=== PATIENT | female | born 1990 | race Caucasian/White ===

== ENCOUNTER → 2017-10-17 | Outpatient (CLI) | payer BC | LOC: SUN.DIA 08:04 | DX: O24.419 Gestational diabetes mellitus in pregnancy, unspecified control (principal); Z3A.30 30 weeks gestation of pregnancy | CPT/HCPCS: G0108 ==

== ENCOUNTER → 2017-10-26 | Outpatient (CLI) | payer BC | LOC: SUN.DIA 08:43 | DX: O24.419 Gestational diabetes mellitus in pregnancy, unspecified control (principal); Z3A.32 32 weeks gestation of pregnancy | CPT/HCPCS: G0108 ==

== ENCOUNTER → 2017-11-14 | Outpatient (CLI) | payer BC | LOC: SUN.DIA 08:39 | DX: O24.419 Gestational diabetes mellitus in pregnancy, unspecified control (principal); Z3A.34 34 weeks gestation of pregnancy | CPT/HCPCS: G0108 ==

== ENCOUNTER 2017-11-22 14:35 | Inpatient (IN) | payer BC ==
[2017-11-22] VITALS (30 sets, daily range): BP systolic 105–180; BP diastolic 53–115; PULSE 77–101; TEMP 97.9–98.2
[~2017-11-22] VITALS: Ht 172.7 cm; Wt 79.5 kg
[2017-11-22] MEDS ORDERED: TUMS500 MG (14:56)
[2017-11-22] MEDS ORDERED: CONCEPT DHA1 CAP PO (14:56)
[2017-11-22 15:48] LABS: HEMATOCRIT 36.5 % (37.0-47.0); HEMOGLOBIN 12.8 g/dl (12.5-16.0); MEAN CELL VOLUME 85 fl (80.0-100.0); MEAN CORPUSCULAR HEMOGLOBIN 30 pg (27.0-31.0); MEAN CORPUSCULAR HGB CONC 35 g/dl (33.0-37.0); MEAN PLATELET VOLUME 13.2 fl (7.4-10.4); PLATELET COUNT 116 K/mm3 (130-400); RED BLOOD COUNT 4.32 M/mm3 (4.10-5.30); REDCELL DISTRIBUTION WIDTH-CV 12.1 % (11.5-14.5)
[2017-11-22 15:56] LABS: ALBUMIN 3.3 gm/dL (3.5-5.0); BILIRUBIN,TOTAL 0.4 mg/dL (0.0-1.0); CALCIUM 10.1 mg/dL (8.4-10.2); CREATININE, serum 0.59 mg/dL (0.52-1.25); POTASSIUM 3.6 mmol/L (3.4-5.0); TOTAL PROTEIN 6.7 gm/dL (6.4-8.2)
[2017-11-23] VITALS (82 sets, daily range): BP systolic 100–166; BP diastolic 51–86; PULSE 69–146; TEMP 97.6–98.6
[2017-11-23 01:22] LABS: MEAN CELL VOLUME 85 fl (80.0-100.0); MEAN CORPUSCULAR HEMOGLOBIN 30 pg (27.0-31.0); MEAN CORPUSCULAR HGB CONC 35 g/dl (33.0-37.0); MEAN PLATELET VOLUME 13.1 fl (7.4-10.4); PLATELET COUNT 106 K/mm3 (130-400); RED BLOOD COUNT 4.06 M/mm3 (4.10-5.30)
[2017-11-23 01:25] LABS: HEMATOCRIT 34.5 % (37.0-47.0)
[2017-11-23 01:58] LABS: LYMPHOCYTE 5 % (20.0-51.0); NEUTROPHILS 95 % (42.0-75.2); PLATELET ESTIMATE DECREASED (NORMAL)
[2017-11-23 02:00] LABS: ALBUMIN 3.3 gm/dL (3.5-5.0); BILIRUBIN,TOTAL 0.4 mg/dL (0.0-1.0); CALCIUM 8.5 mg/dL (8.4-10.2); CREATININE, serum 0.55 mg/dL (0.52-1.25); POTASSIUM 3.9 mmol/L (3.4-5.0); TOTAL PROTEIN 6.5 gm/dL (6.4-8.2)
[2017-11-23] MEDS ORDERED: MOTRIN 800800 MG/TAB PO (08:40)
[2017-11-23] MEDS ORDERED: PERCOCET 325 MG1 TA2 PO (08:40)
[2017-11-24 00:15] VITALS: BP 128/71; PULSE 87; TEMP 98.4
[2017-11-24 04:40] VITALS: BP 123/75; PULSE 73; TEMP 97.7
[2017-11-24 07:30] VITALS: BP 133/88; PULSE 79; TEMP 98.3
[2017-11-24 09:03] LABS: BASO % 0.2 % (0.0-2.0); GRAN # 19.9 (1.4-6.5); GRAN % 88.4 % (42.2-75.2); HEMOGLOBIN 11.3 g/dl (12.5-16.0); LYMPH # 1.3 (1.2-3.4); LYMPH % 5.6 % (20.0-51.0); MEAN CELL VOLUME 89 fl (80.0-100.0); MEAN CORPUSCULAR HEMOGLOBIN 30 pg (27.0-31.0); MEAN CORPUSCULAR HGB CONC 34 g/dl (33.0-37.0); MEAN PLATELET VOLUME 13.4 fl (7.4-10.4); MONO % 4.6 % (1.7-9.3); PLATELET COUNT 133 K/mm3 (130-400); RED BLOOD COUNT 3.78 M/mm3 (4.10-5.30); REDCELL DISTRIBUTION WIDTH-CV 12.4 % (11.5-14.5)
[2017-11-24 09:11] LABS: HEMATOCRIT 33.6 % (37.0-47.0)
[2017-11-24 09:18] LABS: ALBUMIN 3.2 gm/dL (3.5-5.0); BILIRUBIN,TOTAL 0.4 mg/dL (0.0-1.0); CREATININE, serum 0.68 mg/dL (0.52-1.25); POTASSIUM 4.8 mmol/L (3.4-5.0); TOTAL PROTEIN 6.4 gm/dL (6.4-8.2)
[2017-11-24 20:00] VITALS: BP 128/80; PULSE 69; TEMP 97.7
[2017-11-25 08:00] VITALS: BP 128/81; PULSE 77; TEMP 98.2
[2017-11-25 17:00] VITALS: BP 130/80; PULSE 74; TEMP 97.9
== END 2017-11-25 17:30 | disposition home or self-care (01) | DRG 807 ==
LOC: LDRO 14:35 → LDR 16:17 → OB 11-23 22:15
PROVIDERS: Obstetrics & Gynecology
PROC: 3E033VJ Introduction of Other Hormone into Peripheral Vein, Percutaneous Approach (ICD-10-PCS; 2017-11-22)
PROC: 10E0XZZ Delivery of Products of Conception, External Approach (ICD-10-PCS; principal; 2017-11-23)
PROC: 0W8NXZZ Division of Female Perineum, External Approach (ICD-10-PCS; 2017-11-23)
DX: O14.14 Severe pre-eclampsia complicating childbirth (principal); Z37.0 Single live birth; Z3A.34 34 weeks gestation of pregnancy; O24.420 Gestational diabetes mellitus in childbirth, diet controlled; J45.909 Unspecified asthma, uncomplicated; O99.52 Diseases of the respiratory system complicating childbirth; O99.344 Other mental disorders complicating childbirth; F41.9 Anxiety disorder, unspecified; O76 Abnormality in fetal heart rate and rhythm complicating labor and delivery
CPT/HCPCS: J0702; J2540; J2590; J3475; J7030

== ENCOUNTER 2020-07-06 13:43 | Inpatient (IN) | payer BC ==
[2020-07-06] VITALS (27 sets, daily range): BP systolic 101–143; BP diastolic 54–88; PULSE 73–116; TEMP 97.5–98.8
[~2020-07-06] VITALS: Ht 175.3 cm; Wt 72.3 kg
--- NOTE | 2020-07-06 13:10 | NUR ---
Patient ambulatory to LR5, changed into gown, FHR/TOCO monitors applied. Patient is a direct admit from office per Dr. Keen due to Preeclampsia. Patient is having a small-moderate amount of red vaginal bleeding and Dr. Keen is aware of this. Patient states she is feeling some cramping, denies any leaking of fluid/decreased movement. Plan of care discussed. 1320: IV started in left hand, blood obtained and to lab, LR infusing. 1325: Dr. Keen at bedside assessing patient patient/bleeding/FHR strip. Plan of care discussed. 1326: SVE per Dr. Keen 4-5/70/-2 and AROM with clear fluid noted.
--- NOTE | 2020-07-06 13:35 | NUR ---
Dr. Keen orders to start pitocin. 1335: Pitocin induction discussed and patient agrees. Pitocin started at 2mu/hr per protocol. Dr. Keen orders to increase pitocin 2mu every 20 minutes. 1420: Patient requests epidural and Kelsea Neely [employer] notified. 1435: Patient sitting up for epidural and Kelsea Neely [employer] at bedside. 1442: Single shot given and patient tolerates well. 1450: Patient repositioned and safety precautions/plan of care discussed. 1530: Vang catheter placed and patient tolerates well. SVE- 5-6/70/-2 and patient left lateral and right leg resting in stirrup.
[~2020-07-06 13:43] MED LIST: BIRTH CONTROL; CIPRO 500MG TA500 MG PO; CONCEPT DHA1 CAP PO; CYSTEX PO; MOTRIN 800800 MG/TAB PO; PERCOCET 325 MG1 TA2 PO; PYRIDIUM200 M1 PO; TUMS500 MG
[2020-07-06 14:04] LABS: BASO % 0.4 % (0.0-2.0); EOS # 0.1 (0.0-0.7); EOS % 0.5 % (0-4.0); GRAN # 7.2 (1.4-6.5); GRAN % 67.9 % (42.2-75.2); HEMATOCRIT 38.4 % (37.0-47.0); HEMOGLOBIN 13.4 g/dl (12.5-16.0); LYMPH # 2.5 (1.2-3.4); LYMPH % 24.1 % (20.0-51.0); MEAN CELL VOLUME 85 fl (80.0-100.0); MEAN CORPUSCULAR HEMOGLOBIN 30 pg (27.0-31.0); MEAN CORPUSCULAR HGB CONC 35 g/dl (33.0-37.0); MEAN PLATELET VOLUME 13.4 fl (7.4-10.4); MONO # 0.7 (0.1-0.6); MONO % 6.6 % (1.7-9.3); PLATELET COUNT 131 K/mm3 (130-400); REDCELL DISTRIBUTION WIDTH-CV 12.8 % (11.5-14.5)
[2020-07-06] MEDS ORDERED: TRANDATE 100MG100 MG PO (14:04)
[2020-07-06] MEDS ORDERED: WELLBUTRIN SR150 M1 PO (14:06)
[2020-07-06] MEDS ORDERED: NATURAL IRON65 MG (14:07)
[2020-07-06] MEDS ORDERED: PRENATAL TABLET PO (14:07)
[2020-07-06 14:13] LABS: ALBUMIN 3.5 gm/dL (3.5-5.0); BILIRUBIN,TOTAL 0.2 mg/dL (0.0-1.0); CALCIUM 9.1 mg/dL (8.4-10.2); CREATININE, serum 0.8 (0.52-1.25); TOTAL PROTEIN 6.8 gm/dL (6.4-8.2)
[2020-07-06] MEDS ORDERED: FIORICET 325 MG1 TA1 PO (15:20)
--- NOTE | 2020-07-06 17:10 | NUR ---
SVE-10/100/0 and patient practice pushes. 1723: Dr. Keen called for delivery. Vang catheter removed. 1733: Dr. Keen at bedside and patient prepped for vaginal delivery. 1736: Patient pushes with contractions. 1737: Spontaneous vaginal delivery of viable female-head followed by body. bulb syringed and to patients abdomen, E.Gina assumes care of infant. Cord clamped by physician and cut by FOB. Cord blood and cord gases obtained. 1739: Spontaneous delivery of placenta and pitocin bolus started at 333 mu/hr per protocol. Fundal massage done/firm/bleeding WNL. Dr. Keen repairs laceration Patient reposition and ice pack to perineum. Plan of care discussed.
--- NOTE | 2020-07-06 20:00 | NUR ---
Pt able to lift legs but not hold for 5 seconds. Pt wanting to try and void prior to straight cath. Pt assisted into wheelchair and wheeled to bathroom. Pt able to void 800mls. Pericare explained and completed. Mesh panties, pad and ice pack applied. Pt wheeled to room and oriented to room. Call light within reach.
[2020-07-07 05:30] VITALS: BP 127/71; PULSE 71; TEMP 98.7
[2020-07-07 08:15] VITALS: BP 129/84; PULSE 67; TEMP 97.5
--- NOTE | 2020-07-07 09:08 | NUR ---
Initial visit; Parents thanked Appraiser Auditor for offering congratulations and God's blessings for the of their daughter. Appraiser Auditor thanked family for choosing [facility].
[2020-07-07 12:00] VITALS: BP 127/78; PULSE 85
[2020-07-07 17:12] VITALS: BP 127/72; PULSE 81; TEMP 98.2
[2020-07-07 19:40] VITALS: BP 130/64; PULSE 85; TEMP 98.1
[2020-07-08] MEDS ORDERED: MOTRIN 800800 MG/TAB PO (07:36)
[2020-07-08 08:27] VITALS: BP 137/84; PULSE 83; TEMP 97.9
== END 2020-07-08 14:45 | disposition home or self-care (01) | DRG 807 ==
LOC: LDR 13:43 → OB 20:35
PROVIDERS: ADMIT Obstetrics & Gynecology
PROC: 10E0XZZ Delivery of Products of Conception, External Approach (ICD-10-PCS; principal; 2020-07-06)
PROC: 0KQM0ZZ Repair Perineum Muscle, Open Approach (ICD-10-PCS; 2020-07-06)
PROC: 10907ZC Drainage of Amniotic Fluid, Therapeutic from Products of Conception, Via Natural or Artificial Opening (ICD-10-PCS; 2020-07-06)
PROC: 3E033VJ Introduction of Other Hormone into Peripheral Vein, Percutaneous Approach (ICD-10-PCS; 2020-07-06)
DX: O14.14 Severe pre-eclampsia complicating childbirth (principal); Z37.0 Single live birth; J45.909 Unspecified asthma, uncomplicated; D64.9 Anemia, unspecified; O60.14X0 Preterm labor third trimester with preterm delivery third trimester, not applicable or unspecified; O99.02 Anemia complicating childbirth; O99.52 Diseases of the respiratory system complicating childbirth; O99.344 Other mental disorders complicating childbirth; O70.1 Second degree perineal laceration during delivery; Z3A.36 36 weeks gestation of pregnancy
CPT/HCPCS: J2590; J2795; J7120